=== PATIENT | female | born 1935 | race Caucasian/White ===

== ENCOUNTER 2016-09-06 07:36 | Day surgery (SDC) | payer MEDICARE ==
[2016-09-06] VITALS (12 sets, daily range): BP systolic 129–169; BP diastolic 49–69; PULSE 60–89; RESP 11–17; O2SAT 91–99
[~2016-09-06] VITALS: Ht 167.6 cm; Wt 64.0 kg
[2016-09-06] MEDS: Lactated Ringer's 1,000 ML IV SCH ×3 (05:00→11:50)
[~2016-09-06 07:36] MED LIST: ASPI-973 PO; CA C1TAB83 PO; CHOL400T PO; CITA10TA9 PO; CRES20T PO; DEXTROSE 5% IV ONE; FENO134C PO; GENTAMICIN IV ONE; HYDR12.55 PO; LEVO50CA2 PO; LISI10TA PO; METF500T4 PO; VIT1TABL83 PO
[2016-09-06] MEDS ORDERED: Dexamethasone 4 mg/mL Inj ONE (07:37)
[2016-09-06] MEDS ORDERED: Propofol 10,000 mCg/mL 20 mL Inj ONE (07:37)
[2016-09-06] MEDS ORDERED: EPHEDrine/NS 5 mg/mL 5 mL Syringe ONE (07:37)
[2016-09-06] MEDS ORDERED: fentaNYL-PF 50 mCg/mL 2 mL Inj ONE (07:37)
[2016-09-06] MEDS ORDERED: Ondansetron 2 mg/mL 2 mL Inj ONE (07:37)
--- NOTE | 2016-09-06 11:34 | PCM.HPANE ---
Patient Data Date of Service: Sep 06, 2016 Surgeon Admitting Provider: Attending Provider:Adonay Billy MD Primary Care Physician:Julien Barreto MD Other Provider:Chris Yo Anesthesia Reason for Visit Cystocele, Stress Incontinence CYSTOCELE, STRESS INCONTINENCE Ht/WT & BMI Height (Feet): 5 Height (Inches): 6.00 Weight (Kilograms): 63.5 Body Mass Index 22.00 Allergies Coded Allergies: Penicillins (Verified Allergy, Severe, "stop breathing", 04/15/15) codeine (Verified Allergy, Severe, heart palpitations, 04/15/15) shellfish derived (Unverified Allergy, Severe, HIVES, 04/15/15) clarithromycin (Verified Allergy, Intermediate, 09/06/16) Very sore mouth, throat Adhesives (Verified Allergy, Unknown, UNKNOWN, 04/15/15) niacin (Unverified Allergy, Unknown, UNKNOWN, 07/22/14) amitriptyline (Unverified Adverse Reaction, Severe, NIGHTMARES, 07/22/14) clindamycin (Verified Adverse Reaction, Severe, MOUTH SORES, 07/22/14) Past Anesthesia History Anesthesia History: Denies:: Abnormal Airway, Anesthesia Reactions, Difficult Intubation, Fam Anesthesia Reaction, Fam Malignant Hypertherm, Malignant Hyperthermia Diabetes History Hx Diabetes?: Yes Type of Diabetes: Type II Glycemic Control: Oral Medication Current Bedside Blood Glucose: 170 MRSA MRSA: No Medications Blood Thinner: Aspirin Hypertension Medication: Yes Home Meds Incl Beta Neo: No Reported Medications Vit B Comp/C/FA/Iron/Vit E (Vitamin B Complex Tablet)1 Each Tablet1 Each PO DAILY 09/04/16 Rosuvastatin Calcium (Crestor)20 Mg Ccwakw32 Mg PO DAILY 30 Days Ref 0 09/04/16 Lisinopril 10 Mg Psmurh38 Mg PO DAILY 30 Days Ref 0 09/04/16 Levothyroxine (Tirosint)50 Mcg Ndvfopi50 Mcg PO DAILY 09/04/16 Hydrochlorothiazide 12.5 Mg Jotmet20.5 Mg PO DAILY 30 Days Ref 0 09/04/16 Fenofibrate,Micronized (Fenofibrate)134 Mg Fyhmljy057 Mg PO DAILY Ref 0 09/04/16 Citalopram 10 Mg Jmutlj58 Mg PO DAILY Ref 0 09/04/16 Cholecalciferol (Vitamin D3) (Vitamin D3)400 Unit Ephzfb500 Unit PO DAILY 09/04/16 Aspirin 81 Mg Qxdadg87 Mg PO DAILY Ref 0 09/04/16 Ca Carbonate/Vitamin D3/Vit K (Calcium + D Soft Chewable Tab)1 Each Tab.chew1 Each PO DAILY 09/04/16 Metformin 500 Mg Pbvhex652 Mg PO BID Ref 0 09/04/16 Discontinued Reported Medications Multivitamin (Once Daily)1 Each Tablet1 Each PO DAILY 04/15/15 Calcium Carbonate/Vitamin D3 (Calcium 600 + D Tablet)600 Mg-800 Tablet1 Tab PO DAILY 04/15/15 Ferrous Sulfate 325 Mg Ayfczz013 Mg PO DAILY 30 Days Ref 0 04/15/15 Metformin 500 Mg Ufphsf058 Mg PO BID Ref 0 04/15/15 Lisinopril 10 Mg Unrlbb98 Mg PO DAILY 30 Days Ref 0 04/15/15 Omeprazole 20 Mg Capsule.dr20 Mg PO DAILY Ref 0 04/15/15 Hydrochlorothiazide 25 Mg Esiyqa51 Mg PO DAILY 30 Days Ref 0 04/15/15 Rosuvastatin Calcium (Crestor)20 Mg Verjll04 Mg PO DAILY 30 Days Ref 0 04/15/15 Levothyroxine (Tirosint)50 Mcg Tdjhwql33 Mcg PO DAILY 07/22/14 Vit B Comp/C/FA/Iron/Vit E (Vitamin B Complex Tablet)1 Each Tablet1 Each PO DAILY 07/22/14 Fenofibrate,Micronized (Fenofibrate)134 Mg Lkzjcjq015 Mg PO DAILY 30 Days Ref 0 07/22/14 Citalopram 10 Mg Nrebvu72 Mg PO DAILY 30 Days Ref 0 07/22/14 Discontinued Scripts Hydrocodone/Acetaminophen ([place] 5-325 Tablet)1 Tablet Tablet1-2 Tablet PO Q4H PRN for severe pain #25 TABLET Prov:Estephania Summers DO 04/16/15 Celecoxib (Celebrex)200 Mg Vwhlbfj972 Mg PO BID #28 CAPSULE Prov:Estephania Summers DO 04/16/15 History History of ENT Problems?: Yes HEENT History: Positive for:: Cataracts (surgically removed) Sinus Problem (hx sinusitis) Denies:: Abnormal Airway Difficult Intubation Dysphagia Hearing Problem Hx of Heart Problems?: Yes Cardiovascular History: Positive for:: Chest Pain (angiogram post c.p.) Congestive Heart Failure Hypertension Denies:: AICD Atrial Fibrillation Cardiac Surgery Edema Heart Murmur Irregular Heartbeat Pacemaker Thrombophlebitis Valvular Heart Disease Other History/Comments Limited by arthritis, but gets probably 4 mets in ADL, no angina Hx of Respiratory Problem?: No Respiratory History: Denies:: Asthma COPD Chest Surgery Cough Dyspnea Emphysema Hemoptysis Oxygen Administration Pneumonia Tuberculosis Use of C-PAP Machine Use of Inhalers / NEBS Hx Neurologic Problems?: No Neurological History: Denies:: CVA Dementia Dizziness Headaches Parkinson's Disease Seizures Other History/Comments asymptomatic carotid stenosis Hx of GI Problems?: Yes Gastrointestinal History: Positive for:: Diverticulitis (HX DIVERTICULAR DISEASE) Gastroesphageal Reflux Gastrointestinal Bleeding Heartburn Hiatal Hernia Rectal Bleeding Denies:: Cirrhosis Hepatitis Hx of Problems?: No Genitourinary History: Denies:: HX of Hemodialysis Kidney Stones Urinary Tract Infection (hx of) HX of Peritoneal Dialysis: No Other Pertinent History: hx of urethral dilation Female Hx: Positive for:: Problems with Breasts? (left breast ca- lumpectomy) Denies:: Currently Endometriosis Skin History: Denies:: History Skin Disorders? Pressure Ulcers Hx Musculoskeletal Problems?: Yes Musculoskeletal History: Positive for:: Osteoarthritis Denies:: Back Injury Fibromyalgia Joint Replacement Musculoskeletal Trauma Myasthenia Gravis Hx of Psycho/Social Problems?: No Psycho Social History: Denies:: Anxiety Bipolar Disorder Hx Depression Suicide Attempt Hx Surgeries?: Yes (RT SHOULDER,ABD HYST/BSO,EXP LAP,ELBOW RPR,LT BREAST,APPY, RT TRIGGER THUMB,) Hx Any Other Health Problems?: Yes Other History: Positive for:: Cancer (Left breast) Hospitalization Thyroid Disease Denies:: Endocrine Disease History Blood Transfusions: Positive for:: Accept Blood Products? Blood Transfusions (R/T CHRONIC ANEMIA) Denies:: Blood Transfuse Reaction Hx Diabetes: YesBedside Blood Glucose: 170 Hx Alcohol Use: NoHx Substance Use: No Smoking Status: Never Smoker Have You Smoked inLast 12 mo: No Stop/Bang S-Snoring: Do You Snore Loudly: No T-Tired: feel tired, fatigued: No O-Obsered: Observed not breath: No P-Blood Pressure: treated: Yes B- Body Mass Index > 35 kg/m2: No A- Age over 50: Yes N- Neck Large Circumference: No G- Gender Male: No WILIAM Total Score: 2 WILIAM Risk Assessment: Low Risk, <3 Yes Risk Assessment Category Category 1A: Patient has history of documented sleep apnea, and HAS NOT received any narcotic, sedative or anesthesia administration during this stay. Category 1B: Patient has history of documented sleep apnea, and HAS received any narcotic , sedative or anesthesia administration during this stay Category 2: Patient has SUSPECTED Obstructive Sleep Apnea, and HAS received any narcotic , sedative or anesthesia administration during this stay. Category 3: Patient has SUSPECTED Obstructive Sleep Apnea and HAS NOT received narcotic, sedative or anesthesia administration during this stay. Category 4: Outpatient in Procedural Areas with known sleep apnea or who screen positive for High Risk via the STOP/BANG questionnaire. Exam Exam Vital Signs Vital Signs Date Time Temp Pulse Resp B/P Pulse Ox O2 Delivery O2 Flow Rate FiO2 09/06/16 08:57 36.5 60 16 148/49 99 Room Air General Appearance: Alert, Oriented X3, Cooperative, No Acute Distress HEENT/AIRWAY: MP 3 Lungs: Clear to Auscultation, Normal Air Movement Heart: Exam Unremarkable, Regular Rate/Rhythm, No Murmurs/Rubs/Gallops Meds/Labs/Diagnostics Admission Meds Current Medications Lactated Ringer's (Lr) 1,000 ml @ 120 mls/hr Q8H20M IV Last administered on t 08:56; Start 09/06/16 at 05:00; Stop 09/06/16 at 13:19 Bedside Blood Glucose: 170 Plan Impression Patient chart reviewed, patient interviewed and anesthestic plan with risks, benefits, and alternatives discussed, and informed consent obtained. NPO Status: 09/05 ASA Physical Status: ASA3 Severe Disease Anesthetic Plan: GA Bene/Risks/Altern/Consents: Yes HP Complete Prior to Induction: Yes Marcus Avendano MD Sep 06, 2016 11:34
[2016-09-06] MEDS ORDERED: HYDROmorphone 1 mg/mL Inj IVPUSH PRN (11:45)
[2016-09-06] MEDS ORDERED: Ondansetron 2 mg/mL 2 mL Inj IVPUSH PRN ×3 (11:45→14:42)
[2016-09-06] MEDS ORDERED: hydrALAZINE 20 mg/mL Inj IVPUSH PRN (11:45)
[2016-09-06] MEDS ORDERED: MetoCLOpramide 5 mg/mL 2 mL Inj IVPUSH PRN ×3 (11:45→14:43)
[2016-09-06] MEDS ORDERED: Atropine 0.4 mg/mL Inj IVPUSH PRN (11:45)
[2016-09-06] MEDS ORDERED: Dexamethasone 4 mg/mL Inj IVPUSH PRN (11:45)
[2016-09-06] MEDS ORDERED: Lactated Ringer's 500 ML IV PRN (11:45)
[2016-09-06] MEDS ORDERED: Lactated Ringer's 1,000 ML IV SCH (11:45)
[2016-09-06] MEDS ORDERED: Phenylephrine 10,000 mCg/mL Inj IVPUSH PRN (11:45)
[2016-09-06] MEDS ORDERED: EPHEDrine Sulfate 50 mg/mL Inj IVPUSH PRN (11:45)
[2016-09-06] MEDS ORDERED: fentaNYL-PF 50 mCg/mL 2 mL Inj IVPUSH PRN (11:45)
[2016-09-06] MEDS ORDERED: Labetalol 5 mg/mL 4 mL Inj IV PRN (11:45)
[2016-09-06] MEDS ORDERED: Lidocaine 1%-Epi 1:100,000 20 mL Inj INFILTRATE ONE (12:20)
--- NOTE | 2016-09-06 13:27 | PCM.ANEP1 ---
Post Anesthesia Phase 1 PACU Phase 1 Assessment Date of Service: Sep 06, 2016 Vital Signs 37.1 8169/61 18 14 92% RA Level of Alertness: Sleepy, easy to arouse DHILLON's with Equal Strength: Yes Pain: No Nausea or Vomiting: No Oxygen Delivery: Room Air Lungs: Clear to Auscultation, Normal Air Movement Marcus Avendano MD Sep 06, 2016 13:27
[2016-09-06 13:31] LABS: APPEARANCE,URINE HAZY (CLEAR,HAZY); COLOR,URINE YELLOW (YELLOW); OCCULT BLOOD,URINE NEGATIVE (NEGATIVE); PH,URINE 6.5 (5.0-8.0); UROBILINOGEN,URINE NORMAL (NORMAL)
[2016-09-06] MEDS ORDERED: diphenhydrAMINE 25 mg Capsule PO PRN (13:35)
--- NOTE | 2016-09-06 14:02 | PCM.ANEP2 ---
Post Anesthesia Evaluation ASA/CMS Post Anesthesia Date of Service: Sep 06, 2016 VS in Patient's Normal Range?: Yes Resp Stable; Airway Patent?: Yes CV Function & Hydration Stable: Yes Mental Status Recovered?: Yes Pain control Satisfactory?: Yes N/V Control Satisfactory?: Yes Marcus Avendano MD Sep 06, 2016 14:02
[2016-09-06] MEDS: Insulin Human REGular 300 Unit/3 mL Inj SUBQ SCH ×2 (14:30→20:21)
--- NOTE | 2016-09-06 16:00 | NUR ---
Post Op Pt arrived to [facility] rm 1007 at approx 1445 via gurney. Rec'd report from MARLEN Ortiz in PACU. Pt was transferred to hospital bed via slider board and two person assist, Quintanilla patent and draining to gravity. Minimum serous/sang drainage from vaginal area. O2 set at 2L via NC, IV SL. Pt tolerating clear liquids. Pt oriented to room and call light by SEARCH ENGINE MARKETING MANAGER. Denies any nausea or pain at this time.
[2016-09-06] MEDS: oxyCODONE-Acetamin 5-325 mg Tablet PO PRN ×2 (18:18→21:32)
--- NOTE | 2016-09-06 20:41 | PCM.SURGOP ---
Surgical Operative Report Date of Service: Sep 06, 2016 Pre Operative Diagnosis 1. POPQ stage 2 anterior vaginal prolpase 2. Urodynamic stress incontinence Post Operative Diagnosis 1. POPQ stage 2 cystocele 2. Urodynamic stress incontinence Procedure: 1. Anterior colporrhaphy 2. Macroplastique Urethral Injection and Cystoscopy. Surgeon and Aoc Director Combat Plans Officer: Surgeon: Adonay Billy MD Assistants: Alfredo Enriquez MD Indication for Procedure Her assessment to date includes: 1. Urge incontinence N39.41 (788.31): 2. Stress incontinence in female N39.3 (625.6): urodynamic stress incontinence. 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 3. Cystocele, midline N81.11 (618.01): POPQ stage 2; failed trial of pessary We discussed the different treatment options for mixed incontinence and cystocele. She has failed 2 OAB medications and a trial of pessary. She does not wish to undergo Urgent PC treatments. Interstim is a future possibility. Therefore the best options include a multi-step approach: First, anterior repair and Macroplastique urethral injection. I would prefer to do a urethral injection which may be cause less voiding dysfunction than a sling, considering her obstructive voiding pattern. However, the cystocele may be contributing to the obstructive pattern and anterior repair may improve voiding function. A sling would be offered if the voiding dysfunction resolves. She might benefit from future pelvic floor physiotherapy for detrusor sphincter pseudodyssynergia. Interstim can also be offered in the future. The patient signed the consent form. She agreed with the risks, benefits, and alternatives to surgery. The risks included but not limited to recurrence or persistence of prolapse, recurrence of persistence of incontinence, development of voiding dysfunction, development of urinary urgency, urgency incontinence, frequency, and need for intermittent self-catheterization or prolonged indwelling catheterization, injury to other organs including bladder, bowel, nerves or blood vessels. Need for blood transfusion, need for temporary colostomy or urinary stenting. Development of vaginal scarring, dyspareunia, defecatory dysfunction, recurring pain, hematoma formation, urinary tract infection, cellulitis, necrotizing fascitis, and medical risks including myocardial infarction, stroke or VTE. The patient understood the risks and benefits and consented to surgery. Findings: see dictation Procedure Details SURGICAL TECHNIQUE: The patient was brought to the operating room and was placed under general anesthesia. She was prepped and draped in the normal fashion for vaginal surgery with the legs in Yellofin stirrups. She was given a dose of IV Gentamicin intraoperatively. 1. Anterior colporrhaphy: Lidocaine 0.5% with 1/[id number] epinephrine was infiltrated along the anterior vaginal wall mucosa. A midline vertical incision was made through the anterior vaginal wall . The vaginal wall was dissected off the underlying pubocervical and pubovesical fascia. The dissection was extended to the ischial pubic rami laterally, and to the vagina apically. No paravaginal defects were noted. It was noted that the pubocervical and pubovesical fascial tissues were not deficient nor thin. The cystocele was plicated in 2 layers, the first layer with 2-0 Vicryl suture in interrupted fashion, the second layer with 2-0 Tycron suture in an interrupted fashion. A small amount of excess anterior vaginal mucosa was excised. The vagina was then reapproximated using 3-0 Vicryl suture in a running locked fashion. 2. Macroplastique Urethral Injection and Cystoscopy. A 30-degree cystoscope was inserted into the bladder. The bladder was filled to approximately 50% capacity with sterile water. The scope was retracted to visualize the bladder neck and location of the mid urethral position. The needle was then advanced through the working channel of the scope to visualize the needle tip. The needle was inserted into urethral wall, taking care to ensure that the needle bevel was facing the center of the urethral lumen. We used the tissue tunneling technique by orienting the needle with the bevel towards the urethral lumen at a 30- to 45-degree angle. The needle was advanced into the tissue to the first neida, which was 0.5 cm deep. The scope was reduced to 0 degrees. The needle was then advanced to a second neida, which was 1 cm deep. Then, 2.5 mL of the Macroplastique were then injected at the 6 o'clock position. Thirty seconds of waiting time elapsed before withdrawing the needle from the tissue to limit product extravasation. The same procedure was performed at the 2 and 10 o'clock positions. The volumes at the 2 and 10 o'clock positions were 1.25 mL of Macroplastique implant. An additional 2.5 ml needed to be injected into the 12 and 4 oclock position to obtain adequate coaptation. The end result of the procedure revealed coaptation of the urethral mucosa at the level of the bladder neck. A 8 F catheter was then inserted into the bladder. The estimated blood loss was minimal (5 mL). There were no complications. All sponges and instruments were accounted for. The patient was taken to the recovery room in stable condition. Complications There were no periprocedural complications identified. Surgical Specimen Removed: No Specimen sent to Pathology: No Anesthetic Plan: GA Grafts, Implants: Implants-See Implant Record Output, Estimated Blood Loss: 5 (ml) Blood Administration during vickers: No Drains: None Catheters: Urethral 2 Way Quintanilla Post Operative Plan overnight stay in bed as she requires a voiding trial in the am. We will monitor her sugars due to diabetes copies to: Adonay Billy MD, William Andre Z MD Sep 06, 2016 20:41
[2016-09-07 00:25] VITALS: BP 130/65; PULSE 66; RESP 17; O2SAT 96
[2016-09-07] MEDS: oxyCODONE-Acetamin 5-325 mg Tablet PO PRN ×2 (01:53→07:55)
[2016-09-07] MEDS: Insulin Human REGular 300 Unit/3 mL Inj SUBQ SCH ×2 (01:56→07:55)
--- NOTE | 2016-09-07 03:35 | NUR ---
Quintanilla/Voiding/Activity Patient c/o bladder feeling full and like it was "about to burst" around 0000. Quintanilla noted to not be draining and only had 100ml of urine out so far. Upon further inspection, Quintanilla noted to be out of urethra completely. Bladder scan performed and showed 640 ml of urine in bladder. Patient requesting to get up to BSC to try and void. Patient voided 300 ml and requested to get up and walk around unit to try and help void some more. Patient did one lap around the unit with SBA. Gait steady. Denied lightheadedness/dizziness. Upon returning back to room, patient voided another 40 ml. PVR checked and noted to be 356 ml. 8 Fr Quintanilla replaced and is appropriately draining to gravity at this time.
[2016-09-07 05:08] VITALS: BP 109/45; PULSE 68; RESP 17; O2SAT 95
[2016-09-07 05:47] LABS: BASOPHILS % (AUTO) 0.1 % (0-3); EOSINOPHILS % (AUTO) 0.2 % (0-5); MONOCYTES % (AUTO) 9.1 % (4-12); Mean Corpuscular Hemoglobin 26.9 pg (27.0-35.0); Mean Corpuscular Volume 88.3 fL (81-100); NEUTROPHILS % (AUTO) 79.3 % (40-74); Platelet Count 152 bil/L (150-400)
[2016-09-07] MEDS ORDERED: Senna-Docusate 8.6-50 mg Tablet PO SCH (08:30)
[2016-09-07] MEDS ORDERED: Heparin 5,000 Unit/mL Inj SUBQ SCH (08:30)
--- NOTE | 2016-09-07 09:16 | NUR ---
Social Work Initial Assessment: SW met with patient at bedside to discuss discharge plan. Patient is a 80 year old female admitted under [facility] for cystocele, stress incontinence. Patient payer as Medicare and [employer]. Patient PCP as MD Barreto. Patient resides in [facility]. Patient states emergency contact as brother Gregorio, . Patient pharmacy of choice as [facility] or [facility]. Patient has no previous HHC, SNF, or DME history. Patient states having AD at home. Patient was encouraged to bring in copy from home. Patient states being independent with needs and has no identified discharge needs at this time. Patient denied need for HHC at this time. SW to follow. PLAN: Home independently, pending clinical course. Denied need for HHC at this time. SW to follow. Aleisha GRIER Addendum: 09/07/16 at 0921 by ANDREA CHENEY Amended: Links added.
--- NOTE | 2016-09-07 12:30 | PCM.PNSURG ---
Subjective Date of Service: Sep 07, 2016 Date of Service: Sep 07, 2016 Visit Information: Reason for Visit Cystocele, Stress Incontinence Surgery/Surgery Date ANTERIOR REPAIR 09/06/16 Macroplastique urethral injection Post-Op Day # 1 Subjective: AVSS BP meds held today serial Hb/Hct stable. 0530 am 8.5/27.9, repeated at 1115 am 9.8/31.8 She has a hx of chronic anemia - currently asymptomatic ambulatory tolerating diet escobar fell out last pm and was reinserted when PVR was >300 ml Today, she passed voiding trial (instilled 300 ml, voided 309 ml, PVR with scan 115 ml) pain controlled well u/o good no vaginal bleeding OR explained Postop General: No Complaints Gastrointestinal: Good Appetite Pain Management: PO Postop Activity: Ambulating Independently Objective Vital Sign- Last 8 Hours Date Time Temp Pulse Resp B/P Pulse Ox O2 Delivery O2 Flow Rate FiO2 09/07/16 05:08 36.4 68 17 109/45 95 Room Air Intake and Output- Last 8 Hour 09/07/16 Cumulative From/Thru 07:00 09/04/16 14:32 - 09/07/16 05:07 Intake Total 1050 ml 2655 ml Output Total 890 ml 2545 ml Balance 160 ml 110 ml Intake Oral 1050 ml 1650 ml IV Total 1005 ml Output Urine Total 890 ml 2540 ml Estimated Blood Loss 5 ml # Bowel Movements 0 0 General: Alert, Oriented X3, Cooperative Lungs: Clear to Auscultation Abdomen: Benign, Soft Catheters: None Result Diagram: 09/07/16 1115 Assessment & Plan Impression Chronic iron-deficiency anemia (also noted preoperatively) - asymptomatic Stable Problems: Plan Repeat PVR check prior to discharge iron supplementation f/u with Dr. Billy in 2 wk D/C home today VTE Prophylaxis: Sub-Q Heparin (Unfractionated) Resuscitation Status: CPR: Attempt Resuscitation copies to: Adonay Billy MD, William Andre Z MD Sep 07, 2016 12:29
--- NOTE | 2016-09-07 12:32 | PCM.DIGYN ---
Surgical Discharge Instruction Dates of Hospitalization Date of Hospital Admission overnight outpatient stay in bed 09/06/16- 09/07/16 Providers Admitting Physician: Primary Care Physician: Julien Barreto MD Attending Physician: Adonay Billy MD Diagnosis at Time of Discharge Diagnosis at time of discharge stress incontinence st 2 cystocele Post-operative diagnosis 1. POPQ stage 2 cystocele 2. Urodynamic stress incontinence Problems: Diet Discharge Diet: Heart Healthy, Diabetic Activity Discharge Activity-General: No restrictions Dressing and Incisional Care Hygiene: May shower Follow Up Plan Follow-up appointment: Weeks (2 (if home with escobar, also f/u in 1 wk)) Call your provider for: Fever, Chills, Shortness of breath, Vomitting, Drainage at incision, Heavy vaginal bleeding, Increasing pain Adonay Billy MD Sep 07, 2016 12:32
[2016-09-07 13:45] VITALS: BP 138/55; PULSE 81; RESP 18; O2SAT 97
--- NOTE | 2016-09-07 15:15 | NUR ---
Discharge Pt d/c'd home at approx 1450. Pt dc'd w/ Escobar 12fr, capped and a night bag given. Instructions given w/ repeat back. Supplied pt w/ leg attachment sticker, alcohol wipes, an additional 12fr escobar to bring to follow up appointment. IV d/c'd intact. Pt left w/ all belongings and hard copy of RX. Pt taken to the lobby via w/c to wait for her friend to pick her up
== END 2016-09-07 14:50 | disposition home or self-care (01) ==
LOC: SAS 07:36 → OSC 14:35 → SAS 09-07 14:50
PROVIDERS: ATTEND Obstetrics & Gynecology
DX: N81.11 Cystocele, midline (principal); N39.3 Stress incontinence (female) (male); N39.41 Urge incontinence; R39.14 Feeling of incomplete bladder emptying; N95.2 Postmenopausal atrophic vaginitis; N81.84 Pelvic muscle wasting; I10 Essential (primary) hypertension; I25.10 Atherosclerotic heart disease of native coronary artery without angina pectoris; E11.9 Type 2 diabetes mellitus without complications; D64.9 Anemia, unspecified; M81.0 Age-related osteoporosis without current pathological fracture; K58.9 Irritable bowel syndrome, unspecified; E78.1 Pure hyperglyceridemia; Z86.73 Personal history of transient ischemic attack (TIA), and cerebral infarction without residual deficits; Z85.3 Personal history of malignant neoplasm of breast
CPT/HCPCS: 36415; 51715; 57240; 81000; 85014; 85018; 85025; 86850; 87086; 87088; 87186; J1100; J1580; J1644; J1815; J2405; J7120; L8606